=== PATIENT | female | born 1975 | race Caucasian/White ===

== ENCOUNTER 2017-07-04 06:15 | Inpatient (IN) ==
--- NOTE | 2017-07-03 20:23 | Discharge Summary ---
<Fela Lyman - Last Filed: 07/04/17 11:15> Date of Encounter: 07/04/17 - Discharge Diagnosis (1) Arthritis of right knee Priority: Primary Status: Chronic (2) Pain in left knee Priority: Primary Status: Chronic Qualifiers: Chronicity: unspecified Qualified Code(s): M25.562 - Pain in left knee (3) Hypertension Priority: Secondary Status: Chronic Qualifiers: Hypertension type: unspecified Qualified Code(s): I10 - Essential (primary ) hypertension (4) Arthritis of left knee Priority: Primary Status: Chronic (5) Status post total left knee replacement Priority: Primary Status: Acute (6) Status post total right knee replacement Priority: Primary Status: Acute - Discharge Medications Home Medications: Biotin 10 mg PO DAILY 04/11/17 [History] Flaxseed Oil [[place]-3 Flaxseed Oil] 1,000 mg PO DAILY 04/11/17 [History] Glucosamine Sulfate 500 mg PO DAILY 04/11/17 [History] Metoprolol XL (24 HR) Succ [Toprol Xl] 50 mg PO DAILY 04/11/17 [History] Aspirin Enteric Coated [Aspirin EC] 325 mg PO DAILY 21 Days #21 tablet. [Rx] Allergies/Adverse Reactions: 3 Allergy/AdvReac Type Severity Reaction Status Date / Time acetaminophen [From Percocet] Allergy Nausea Verified 07/04/17 06:39 Oxycodone [From Percocet] Allergy Nausea Verified 07/04/17 06:39 Primary care physician: Provider Unassigned - Patient Status Disposition: Home, Self-Care Condition: Good - Discharge Instructions Follow Up With: Unassigned,Provider [Primary Care Provider] - Fela Lyman PAC [Physician Java Web Engineer] - 07/12/17 8:15 am (& also, , July 19, 2017 at 10:00 AM) Lb Duarte MD [Partnered Physician] - 08/01/17 5:30 pm - Hospital Course Hospital course: Ms. Zhang is a 42 year old female - Time Spent with Patient Total time spent providing and/or coordinating discharge services: <Lb Duarte - Last Filed: 07/08/17 07:26> Date of Encounter: 07/08/17 Time of Encounter: 07:23 - Discharge Diagnosis (1) Obesity (BMI 35.0-39.9 without comorbidity) Priority: Secondary Status: Chronic (2) Status post total right knee replacement Priority: Primary Status: Acute (3) Arthritis of right knee Priority: Primary Status: Chronic (4) Pain in left knee Priority: Primary Status: Chronic Qualifiers: Chronicity: unspecified Qualified Code(s): M25.562 - Pain in left knee (5) Hypertension Priority: Secondary Status: Chronic Qualifiers: Hypertension type: unspecified Qualified Code(s): I10 - Essential (primary ) hypertension (6) Acute blood loss anemia Priority: Primary Status: Acute (7) Arthritis of left knee Priority: Primary Status: Chronic (8) Status post total left knee replacement Priority: Primary Status: Acute Primary care physician: Provider Unassigned - Patient Status Overall status at discharge: patient is progressing back to baseline - Hospital Course Hospital course: Ms. Zhang is a 42 year old female Status post bilateral total knee replacements. Patient was acute blood loss anemia and received 5 units of blood. The patient had an uneventful postoperative course. They received antibiotics and physical therapy and were discharged in stable condition. There will follow -up in the office in 2 weeks. - Time Spent with Patient Total time spent providing and/or coordinating discharge services:
[2017-07-04] MEDS ORDERED: CeFAZolin Syr 2,000MG/20 ML 2,000 MG/20 ML SYRINGE IVPB ONE (06:23)
[2017-07-04] MEDS ORDERED: Lidocaine -MPF 1% 2 ML VIAL ID ONE (06:23)
[2017-07-04] MEDS ORDERED: Ringers Solution, Lactated 1,000 ML IVC SCH ×2 (06:30→13:49)
--- NOTE | 2017-07-04 06:41 | History & Physical Report ---
Date of Encounter: 07/04/17 Time of Encounter: 06:41 24 Hour HP Update - Instructions Instructions: If the History and Physical is less than 30 days old and was completed prior to A.M. admission and or procedure and has NOT been updated on calendar day of procedure please complete this update prior to performing procedure. - Update Patient reports changes in Medical Condition: No Changes in examination, assessment, or condition: No Changes in Medication: No Preop tests/diagnostics Reviewed: Yes Surgery Remains Indicated: Yes Consent for Planned Operative Procedure(s) Verified: Yes - Pre-Operative Checklist Preoperative Checklist Indicated: No Prophylactic Antibiotic Ordered: Yes Is VTE Prophylaxis Indicated?: Yes
[2017-07-04] MEDS ORDERED: *HR* FentaNYL (PF) 100 MCG/2 ML VIAL ONE ×2 (06:52→07:32)
[2017-07-04] MEDS ORDERED: *HR* Midazolam HCl 2 MG/2 ML VIAL ONE (06:52)
[2017-07-04] MEDS ORDERED: Lidocaine -MPF 2% 2 ML VIAL ONE (06:52)
[2017-07-04] MEDS ORDERED: *HR* Propofol 200 MG/20 ML VIAL IVP ONE (06:52)
[2017-07-04] MEDS ORDERED: *HR* Phenylephrine 10 MG/ML VIAL ONE (06:57)
[2017-07-04] MEDS ORDERED: Dexamethasone 4 MG/ML VIAL ONE ×2 (06:57→08:33)
[2017-07-04] MEDS ORDERED: Ondansetron 4 MG/2 ML VIAL ONE (06:57)
[2017-07-04] MEDS ORDERED: *HR* HYDROmorphone (PF) 1 MG/ML SYRINGE IVP PRN (07:00)
[2017-07-04] MEDS ORDERED: *HR* Promethazine 25 MG/ML VIAL IVP PRN (07:00)
[2017-07-04] MEDS ORDERED: ROPIVACAINE HCL/PF 0.5% 30 ML VIAL ONE (07:08)
[2017-07-04] MEDS ORDERED: Bupivacaine/Clonidine Syringe 1 EACH SYRINGE ONE (07:09)
[2017-07-04] MEDS ORDERED: Propofol 500 MG/50 ML INFUS..BTL ONE ×4 (07:12→09:32)
[2017-07-04] MEDS ORDERED: Ethanol\\Acetic Acid\\Na Ace\\Ben 1,000 ML IRRIG.SOLN IR ONE (07:12)
[2017-07-04] MEDS ORDERED: Ketamine *HR* 500 MG/10 ML MDV ONE (07:15)
--- NOTE | 2017-07-04 07:25 | Anesthesia Evaluation PreOp ---
Date of Encounter: 07/04/17 Time of Encounter: 07:22 - Past History Planned Operation: Right total knee robotic, robotic left knee arthroscopy Cardiac History: HTN, Arrhythmia (prolonged QT) Pulmonary History: Denies Any Significant HX INTERNAL SALES ENGINEER History: Denies Any Significant HX Other Medical History: Denies Any Significant HX Anesthesia History: Problems (fevers), MH (concern for MH) Alcohol Use: none Drug use: none Medications and Allergies Biotin 10 mg PO DAILY 04/11/17 [History] Flaxseed Oil [[place]-3 Flaxseed Oil] 1,000 mg PO DAILY 04/11/17 [History] Glucosamine Sulfate 500 mg PO DAILY 04/11/17 [History] Metoprolol XL (24 HR) Succ [Toprol Xl] 50 mg PO DAILY 04/11/17 [History] Aspirin Enteric Coated [Aspirin EC] 325 mg PO DAILY 21 Days #21 tablet. [Rx] HYDROcodone/Acet 5/325 mg [[place] 5-325 mg] 1 tab PO Q4-6H PRN 35 Days #7 tab [Rx] 3 Allergy/AdvReac Type Severity Reaction Status Date / Time acetaminophen [From Percocet] Allergy Nausea Verified 07/04/17 06:39 Oxycodone [From Percocet] Allergy Nausea Verified 07/04/17 06:39 - Meds/Allergy Pre-op Review Medications Reviewed: Yes Allergies Reviewed: Yes Beta Blockers on Current Med List: Yes If Beta Blockers taken, Date/Time (Last Dose taken): 07-03-17 metoprolol xl 25 at 23:00 Anesthesia Results - Labs Laboratory Tests 06/14/17 06/14/17 06/14/17 13:35 13:35 13:35 WBC 7.2 Hgb 13.9 Hct 40.9 Plt Count 365 PT 11.0 INR 1.0 APTT 30.6 Sodium 136 Potassium 3.5 Chloride 101 Carbon Dioxide 23 BUN 13 Creatinine 0.75 Est GFR ( Amer) > 60 Est GFR (Non-Af Amer) > 60 BUN/Creatinine Ratio 17 Glucose 116 H Calculated Osmolality 283 Calcium 9.3 - Imaging EKG: report reviewed, image reviewed (SR) Anesthesia Exam Last Vital Signs Temp 98.2 F 07/04/17 06:56 Pulse 75 07/04/17 06:56 Resp 18 07/04/17 06:56 BP 119/71 07/04/17 06:56 Pulse Ox 97 07/04/17 06:56 Weight: 109 kg NPO (# of Hours): > 8 hrs - HEENT Pupil (Motor): Pupils equal, EOMI Mallampati: III Teeth: Normal Oral Opening: Greater than 3 - INTERNAL SALES ENGINEER LOC: Oriented INTERNAL SALES ENGINEER Motor: Normal RUE, Normal LUE, Normal RLE, Normal LLE, Normal Face - Cardiac Rhythm: Regular Murmur: None - Pulmonary Breath Sounds: bilateral Clear Respiratory Effort: Symmetrical Anesthesia Assess/Plan ASA Score: 2 Modified [place] Scale for Level of Consciousness: Cooperative, oriented, and tranquil Anesthetic Plan: General Monitoring Plan: Standard Monitors Recovery Plan: PACU
[2017-07-04] MEDS ORDERED: Acetaminophen IV 1,000 MG/100 ML INFUS..BTL ONE (07:28)
[2017-07-04] MEDS ORDERED: *HR* HYDROmorphone 2 MG/ML SYRINGE ONE ×2 (08:42→09:12)
[2017-07-04] MEDS ORDERED: Albumin Human 5% 25.0 GM/500 ML VIAL ONE (09:51)
--- NOTE | 2017-07-04 10:28 | Orthopedic Operative Note ---
Date of procedure: 07/04/17 Pre-op diagnosis: Bilateral knee arthritis Post-op diagnosis: same Procedure: Procedure: Bilateral robotic-assisted Total knee replacement Estimated blood loss: 1500 cc Hardware: Metal and polyethylene replacement. Ronna Femur: 3 Tibia: 3 PS insert: 9 left 11 right Patella: 36 Exam Under anesthesia: Left knee 5 degrees hyperextension 1 degree varus, right knee 1 degrees hyperextension 5 degree varus as calculated by the robot full flexion and no instability Procedural Notes: Grade 3 arthritic changes in both knees undersurface of patella medial femoral condyle Operative procedure: The patient was brought to the operating room and placed on the operating room table. After general anesthesia was administered the operative knee was examined. Findings were noted in the exam under anesthesia. Pulse lower extremity was reprepped and draped in sterile surgical fashion patient received IV Anaprox twice incision. Surgery began with a diagnostic knee arthroscopy on the left side. A superior medial outflow portal was established outflow Was introduced into the knee without, complication and anterolateral portal was established the arthroscope was introduced into the knee without complication. Diagnostic arthroscopy revealed grade 3 changes undersurface of patella no changes trochlear groove grade 3 changes medial femoral condyle no changes medial tibial plateau no changes lateral compartment based on the patient's extensive failure of conservative management rotation was to do a total knee replacement on the left robotic-assisted The robotic assisted total knee replacements began first with the right followed by the left knees. Surgery was seen for both knees any differences will be highlighted. A standard midline incision was made centered over the patella. The incision was made through the skin and subcutaneous tissue. A medial parapatellar tendon approach was performed. Care was taken to preserve tissue along the medial aspect of the patella. And to protect the patella tendon. The deep MCL was released off the medial tibia. The infra patella fat pad was excised. The patella was everted and cut was made at the level of the insertion of the quadriceps and patella tendon. The patella was sized to a 36 the guide was seated and the lug holes are drilled. Knee was brought into flexion. Patient noted to have grade 3 arthritic changes undersurface of patella medial femoral condyle Steinmann pins were placed in the tibia and the femur for the tibial and femoral arrays respectively. Checkpoints were also placed in the tibia and the femur for calculation purposes. The knee including the femur and the tibial registered. Osteophytes , ACL and PCL were excised at this point. Extension was to and no varus and valgus stresses were assessed, 90 degrees of flexion varus and valgus stresses were assessed and components were adjusted on the computer for the robotic cut positions. Femoral cuts were made first with robotic assistance, these included the anterior cut posterior cuts chamfer cuts. Tibial cut was then performed with robotic assistance as well. Bone fragments were removed, as well as the medial and lateral meniscus. The size 3 femoral guide was seated box cut was made lug holes are drilled. The size 3 tibial tray was seated and prepared with the fin cutter. Trial reduction with the 9 on the left, 11 on the right PS Deidra revealed extension of 0 degrees and full flexion. No varus valgus instability. Trial reduction revealed excellent patella tracking. All trial components were removed all bony surfaces were irrigated. Tibias press-fit followed by the femur PS Deidra size 9 on the left 11 on the right was seated and secured patella. Patient had similar findings for motion and stability. The knee was closed by the PA. The knee was then irrigated out with 2 L of pulse irrigation. The extensor mechanism was closed with #2 FiberWire suture and #2 PDS suture. The subcutaneous tissue was then irrigated and closed deep with #1 PDS suture superficially with 0 PDS suture and skin was closed with zip tie The patient was then placed in a sterile dressing and a postoperative brace extubated and transferred to recovery room in stable condition. Anesthesia: GETA Surgeon: Lb Duarte Was there an family service assistant present: Yes Mobile Application Tester: Fela Lyman Estimated blood loss (cc): 1,500 Condition: stable Disposition: PACU
[2017-07-04] MEDS ORDERED: Naloxone 0.4 MG/ML INJ ONE ×2 (11:06→12:27)
[2017-07-04] MEDS ORDERED: Albuterol 2.5 MG/3 ML NEBULIZER IH ONE (11:25)
[2017-07-04] MEDS ORDERED: Albuterol 2.5 MG/3 ML NEBULIZER ONE (11:26)
[2017-07-04 11:56] LABS: Hematocrit 23.8 % (35.3-44.9); Hemoglobin 7.9 g/dL (11.5-15.4)
[2017-07-04] MEDS ORDERED: Ketorolac 30 MG/ML VIAL IVP ONE (12:32)
[2017-07-04] MEDS ORDERED: traMADol 50 MG TABLET PO PRN (13:49)
[2017-07-04] MEDS ORDERED: Sennosides 8.6 MG TABLET PO PRN (13:49)
[2017-07-04] MEDS ORDERED: MOM Conc 10 ML UD.LIQ PO PRN (13:49)
[2017-07-04] MEDS ORDERED: Naloxone 0.4 MG/ML INJ IVP PRN (13:49)
--- NOTE | 2017-07-04 13:49 | Anesthesia Evaluation Post Op ---
Date of Encounter: 07/04/17 Time of Encounter: 13:25 - Vital Signs Vital Signs: Last Vital Signs Temp 97.8 F 07/04/17 13:40 Pulse 116 07/04/17 13:40 Resp 10 07/04/17 13:40 BP 101/73 07/04/17 13:40 Pulse Ox 94 07/04/17 13:40 - Lungs Lungs: Clear Ascult./Percussion - Airway Airway: Non-obstructed - Cardiovascular Regular Rate - Mental Status Mental Status: Alert & Oriented, Answers Appropriately - Pain Pain Scale: 4 - Nausea Vomiting Nausea Vomiting: Not Present - Hydration Hydration: NPO - Discharge PostOp Status: Transfer Patient to floor
[2017-07-04] MEDS ORDERED: 0.9 % Sodium Chloride 250 ML ONE ×2 (14:10→17:23)
[2017-07-04] MEDS: BIOTIN 10 MG PO SCH (14:32)
[2017-07-04] MEDS: Ondansetron 4 MG/2 ML VIAL IVP PRN (15:12)
[2017-07-04] MEDS ORDERED: Acetaminophen IV 1,000 MG/100 ML INFUS..BTL IVPB PRN (16:00)
[2017-07-04] MEDS: Metoprolol XL (24 HR) Succ 50 MG TAB.ER.24H PO SCH (16:09)
[2017-07-04] MEDS: CeFAZolin Premix DUPLEX 2,000 MG/50 ML BAG IVPB SCH (16:56)
[2017-07-04] MEDS: *HR* HYDROcodone/Acet 5/325 mg TABLET PO PRN ×2 (17:40→21:46)
[2017-07-04] MEDS ORDERED: *HR* Enoxaparin 30 MG/0.3 ML SYRINGE SQ SCH ×2 (18:00)
[2017-07-04] MEDS: *HR* HYDROmorphone (PF) 1 MG/ML SYRINGE IVP PRN (19:21)
[2017-07-04] MEDS ORDERED: Temazepam 15 MG CAPSULE PO PRN (21:00)
[2017-07-05] MEDS: CeFAZolin Premix DUPLEX 2,000 MG/50 ML BAG IVPB SCH (00:34)
[2017-07-05] MEDS: *HR* HYDROmorphone (PF) 1 MG/ML SYRINGE IVP PRN ×3 (00:37→20:50)
[2017-07-05] MEDS: *HR* HYDROcodone/Acet 5/325 mg TABLET PO PRN ×4 (03:23→23:18)
[2017-07-05 04:48] LABS: Hematocrit 24.4 % (35.3-44.9); Hemoglobin 8.2 g/dL (11.5-15.4)
[2017-07-05 04:58] LABS: BUN/Creatinine Ratio 14 (6-26); Blood Urea Nitrogen 10 mg/dL (6-20); Calcium 8.3 mg/dL (8.6-10.3); Carbon Dioxide 24 mEq/L (23-29); Chloride 103 mEq/L (98-107); Glucose 151 mg/dL (70-105); Osmolality,Calculated 280 (280-300); Potassium 4.2 mEq/L (3.5-5.1); Sodium 134 mEq/L (136-145); eGFR For African Americans > 60 (> 60); eGFR For Non-African Americans > 60 (> 60)
[2017-07-05] MEDS ORDERED: Furosemide 40 MG/4 ML VIAL IVP ONE (06:28)
[2017-07-05] MEDS: Ketorolac 30 MG/ML VIAL IVP PRN ×3 (07:04→21:00)
[2017-07-05] MEDS: Ondansetron 4 MG/2 ML VIAL IVP PRN (07:07)
--- NOTE | 2017-07-05 07:47 | Orthopedics Progress Note ---
Date of Encounter: 07/05/17 Time of Encounter: 07:46 - Assessment and Plan (1) Obesity (BMI 35.0-39.9 without comorbidity) Current Visit: Yes Status: Chronic (2) Status post total right knee replacement Current Visit: Yes Status: Acute (3) Arthritis of right knee Current Visit: No Status: Chronic (4) Pain in left knee Current Visit: No Status: Chronic Qualifiers: Chronicity: unspecified Qualified Code(s): M25.562 - Pain in left knee (5) Hypertension Current Visit: No Status: Chronic Qualifiers: Hypertension type: unspecified Qualified Code(s): I10 - Essential (primary ) hypertension (6) Acute blood loss anemia Current Visit: Yes Status: Acute (7) Arthritis of left knee Current Visit: Yes Status: Chronic (8) Status post total left knee replacement Current Visit: Yes Status: Acute Subjective Interval history: Patient was seen this morning doing well without complaints. Afebrile vital signs stable. Operative extremity: Neurovascularly intact Dressing clean dry and intact Calves nontender Assessment and plan: Continue with postoperative care Hematocrit 24 transfused 2 more units hold Lovenox Objective Vital signs: Vital Signs Temp Pulse Resp BP Pulse Ox 07/05/17 06:54 98.1 F 114 16 103/62 96 07/05/17 05:39 98.4 F 111 16 111/64 96 07/05/17 00:17 97.9 F 106 16 128/76 97 07/04/17 20:34 99.8 F H 98 18 139/84 98 07/04/17 17:51 98.6 F 97 14 107/67 100 07/04/17 17:36 99.0 F 95 15 115/82 100 07/04/17 16:52 98.0 F 101 16 109/69 100 07/04/17 15:56 97.5 F L 95 16 105/68 100 07/04/17 14:40 97.5 F L 111 18 97/68 98 07/04/17 14:38 97.5 F L 110 17 97/68 99 07/04/17 14:25 98.0 F 107 18 101/71 99 07/04/17 14:11 12 97 07/04/17 14:05 98.0 F 110 17 101/73 100 07/04/17 13:40 97.8 F 116 10 101/73 94 07/04/17 13:23 97.6 F 115 12 105/74 99 07/04/17 13:13 97.6 F 111 12 101/78 98 07/04/17 13:03 105 10 104/63 96 07/04/17 12:53 104 12 96/70 95 07/04/17 12:43 98.2 F 96 10 99/80 99 07/04/17 12:33 105 12 115/70 96 07/04/17 12:23 112 15 99/70 100 07/04/17 12:13 97.4 F L 109 15 105/71 99 07/04/17 12:03 107 10 115/71 96 07/04/17 11:53 108 10 128/74 99 07/04/17 11:43 97.5 F L 104 12 119/73 96 07/04/17 11:33 97 12 102/67 98 07/04/17 11:23 105 12 103/80 98 07/04/17 11:13 97.8 F 107 12 103/87 98 Intake and Output 07/04/17 07/04/17 07/05/17 15:59 23:59 07:59 Intake Total 20 / 20 700 / 700 Output Total 2600 / 2600 1100 / 1100 Balance -2580 / -2580 700 / 700 -1100 / -1100 Intake: IV Fluids 20 / 20 150 / 150 Ofirmev 1,000 mg/100 ml 1,000 100 / 100 mg In 100 ml @ 400 mls/hr IVPB Q6HR PRN Rx#:[id number] Ancef Premix DUPLEX 2,000 mg In 50 / 50 50 ml @ 100 mls/hr IVPB Q8HR YMOAIRA Rx#:[id number] Ancef Syringe 2,000 MG/20 ML 2, 20 / 20 000 mg In 20 ml @ 200 mls/hr IVPB PREOP ONE Rx#:[id number] Oral 0 / 0 Blood Product 0 / 0 550 / 550 Rbcs Leuko Poor As-1 Unit 0 / 0 300 / 300 [id number] Rbcs Leuko Poor As-1 Unit 250 / 250 [id number] Output: Urine 1100 / 1100 Estimated Blood Loss 1500 / 1500 Catheter 1100 / 1100 - Labs CBC & BMP: 07/05/17 04:06 07/05/17 04:06 Labs: Abnormal lab results Hgb 8.2 g/dL (11.5-15.4) L 07/05/17 04:06 Hct 24.4 % (35.3-44.9) L 07/05/17 04:06 Sodium 134 mEq/L (136-145) L 07/05/17 04:06 Glucose 151 mg/dL (70-105) H 07/05/17 04:06 Calcium 8.3 mg/dL (8.6-10.3) L 07/05/17 04:06 - VTE Documentation of Mechanical Device: Venous foot pump, device Consult Discharge Plan - Plan Referrals: Unassigned,Provider [Primary Care Provider] -
[2017-07-05] MEDS: BIOTIN 10 MG PO SCH (08:03)
[2017-07-05] MEDS: Metoprolol XL (24 HR) Succ 50 MG TAB.ER.24H PO SCH (08:03)
[2017-07-05] MEDS ORDERED: 0.9 % Sodium Chloride 250 ML ONE ×2 (09:16→14:24)
[2017-07-06] MEDS: *HR* HYDROcodone/Acet 5/325 mg TABLET PO PRN ×5 (04:11→21:22)
[2017-07-06 06:05] LABS: Hematocrit 25.3 % (35.3-44.9); Hemoglobin 8.6 g/dL (11.5-15.4)
[2017-07-06 06:22] LABS: BUN/Creatinine Ratio 15 (6-26); Blood Urea Nitrogen 10 mg/dL (6-20); Calcium 8.3 mg/dL (8.6-10.3); Carbon Dioxide 33 mEq/L (23-29); Chloride 105 mEq/L (98-107); Glucose 119 mg/dL (70-105); Osmolality,Calculated 288 (280-300); Potassium 3.9 mEq/L (3.5-5.1); Sodium 139 mEq/L (136-145); eGFR For African Americans > 60 (> 60); eGFR For Non-African Americans > 60 (> 60)
--- NOTE | 2017-07-06 06:32 | Orthopedics Progress Note ---
Date of Encounter: 07/06/17 Time of Encounter: 06:32 - Assessment and Plan (1) Obesity (BMI 35.0-39.9 without comorbidity) Current Visit: Yes Status: Chronic (2) Status post total right knee replacement Current Visit: Yes Status: Acute (3) Arthritis of right knee Current Visit: No Status: Chronic (4) Pain in left knee Current Visit: No Status: Chronic Qualifiers: Chronicity: unspecified Qualified Code(s): M25.562 - Pain in left knee (5) Hypertension Current Visit: No Status: Chronic Qualifiers: Hypertension type: unspecified Qualified Code(s): I10 - Essential (primary ) hypertension (6) Acute blood loss anemia Current Visit: Yes Status: Acute (7) Arthritis of left knee Current Visit: Yes Status: Chronic (8) Status post total left knee replacement Current Visit: Yes Status: Acute Subjective Interval history: Patient was seen this morning doing well without complaints. Afebrile vital signs stable. Operative extremity: Neurovascularly intact Dressing clean dry and intact Calves nontender Assessment and plan: Continue with postoperative care Hematocrit 25 vital signs stable Objective Vital signs: Vital Signs Temp Pulse Resp BP Pulse Ox 07/06/17 04:13 99.1 F 98 16 99/64 98 07/05/17 23:49 99.2 F 90 18 112/68 99 07/05/17 19:40 98.5 F 91 16 105/60 94 07/05/17 17:43 98.3 F 97 15 106/70 98 07/05/17 14:57 98.5 F 95 14 101/61 95 07/05/17 14:42 98.7 F 92 15 98/62 94 07/05/17 14:23 97 14 120/77 98 07/05/17 12:33 98.3 F 97 14 120/77 98 07/05/17 11:22 98.3 F 91 15 105/69 97 07/05/17 09:59 98.0 F 97 15 112/68 97 07/05/17 09:44 98.2 F 100 15 114/72 96 07/05/17 06:54 98.1 F 114 16 103/62 96 Intake and Output 07/05/17 07/05/17 07/06/17 15:59 23:59 07:59 Intake Total 420 / 420 500 / 500 Output Total 200 / 200 875 / 875 350 / 350 Balance 220 / 220 -375 / -375 -350 / -350 Intake: Oral 120 / 120 200 / 200 Blood Product 300 / 300 300 / 300 Rbcs Leuko Poor As-1 Unit 0 / 0 300 / 300 [id number] Rbcs Leuko Poor As-1 Unit 300 / 300 [id number] Output: Urine 200 / 200 350 / 350 350 / 350 Straight Cath 525 / 525 Other: Meal Breakfast Dinner Percent of Meal Consumed 90% 100% # Voids 1 1 Weight 108.68 kg Patient Weight 07/06/17 23:59 Weight 108.68 kg - Labs CBC & BMP: 07/06/17 05:46 07/06/17 05:46 Labs: Abnormal lab results Hgb 8.6 g/dL (11.5-15.4) L 07/06/17 05:46 Hct 25.3 % (35.3-44.9) L 07/06/17 05:46 Carbon Dioxide 33 mEq/L (23-29) H 07/06/17 05:46 Glucose 119 mg/dL (70-105) H 07/06/17 05:46 Calcium 8.3 mg/dL (8.6-10.3) L 07/06/17 05:46 - VTE Documentation of Mechanical Device: Venous foot pump, device Consult Discharge Plan - Plan Referrals: Unassigned,Provider [Primary Care Provider] - Fela Lyman PAC [Physician Java Web Architect] - 07/12/17 8:15 am (& also, July at 10:00 AM) Lb Duarte MD [Partnered Physician] - 08/01/17 5:30 pm
[2017-07-06] MEDS: BIOTIN 10 MG PO SCH (07:49)
[2017-07-06] MEDS: Metoprolol XL (24 HR) Succ 50 MG TAB.ER.24H PO SCH (07:50)
[2017-07-06] MEDS: Ketorolac 30 MG/ML VIAL IVP PRN ×2 (09:36→16:02)
--- NOTE | 2017-07-06 16:50 | Event Note ---
Date of Encounter: 07/06/17 Time of Encounter: 12:45 PCR- POD#2 Bilateral TKR 07/04/17 PCR - Patient seen at bedside. Pain control: Adequate Participating in PT. All questions and concerns addressed. Educated on use of incentive spirometer, ambulation, and hydration. Patient educated on post-operative restrictions and care. Addressed: see above. D/C plan: ECF
--- NOTE | 2017-07-06 16:52 | Physician Discharge Referral ---
ExtendedCare Referral Info Transfer To: [facility] Provider in Charge: Dr. Duarte - Diagnosis (1) Arthritis of right knee Priority: Secondary Status: Chronic (2) Pain in left knee Priority: Secondary Status: Chronic (3) Hypertension Priority: Secondary Status: Chronic (4) Obesity (BMI 35.0-39.9 without comorbidity) Priority: Secondary Status: Chronic (5) Status post total right knee replacement Priority: Primary Status: Acute (6) Arthritis of left knee Priority: Secondary Status: Chronic (7) Status post total left knee replacement Priority: Primary Status: Acute (8) Acute blood loss anemia Priority: Secondary Status: Acute Expected Duration of Placement: <30 days Prognosis: Good Aware of Diagnosis: Patient Aware of Prognosis: Patient - Transfer Medications Home Medications: Biotin 10 mg PO DAILY 04/11/17 [History] Flaxseed Oil [[employer]-3 Flaxseed Oil] 1,000 mg PO DAILY 04/11/17 [History] Glucosamine Sulfate 500 mg PO DAILY 04/11/17 [History] Metoprolol XL (24 HR) Succ [Toprol Xl] 50 mg PO DAILY 04/11/17 [History] Aspirin Enteric Coated [Aspirin EC] 325 mg PO DAILY 21 Days #21 tablet. [Rx] Allergies/Adverse Reactions: 3 Allergy/AdvReac Type Severity Reaction Status Date / Time acetaminophen [From Percocet] Allergy Nausea Verified 07/04/17 06:39 Oxycodone [From Percocet] Allergy Nausea Verified 07/04/17 06:39 - Respiratory Orders Smoking Cessation: Smoking cessation has been advised. For more information, call the [place] Tobacco Quit Line at 5-330-ZFHE-NOW. - Ancillary Orders May use pressure relief devices daily prn, May go on MAC w/family/respon democrat w /meds at nurse discretion PRN, May consult with Dentist, Senior Planning Analyst, Sheet Mill Supervisor PRN - Mobility Orders Chair, Ambulate - Rehabiliation Orders Rehab Potential: Good Rehab Orders: Evaluation for Physical Therapy, Evaluation for Occupational Therapy Other: Total Knee replacement Precautions x 6 weeks Apply cold therapy wrap 3-6x/day for 20 minutes at a time. Encourage ambulation throughout the day and incentive spirometer 10x/hour. Elevate affected extremity above heart as tolerated. Brace: Wear knee immobilizer at night x 2 weeks. - Treatments Skin tear care topically daily PRN per policy List/Other: Opsite placed. Keep dressing intact until first follow up appointment. If > 50% saturated, notify office, remove dressing and place appropriate dressing back in place. Dressing is water resistant, not water-proof. OK to shower, but do not get dressing wet. - Diet Orders Regular CERTIFICATION: I certify that the transfer of the above named patient to an Extended Care Facility is necessary for the continuing treatment of the diagnosis listed. The above information is true and accurate reflection of patient's current condition. Confidential - Redisclosure prohibited without a patient's written consent.
[2017-07-07] MEDS: *HR* HYDROcodone/Acet 5/325 mg TABLET PO PRN ×3 (04:22→20:45)
[2017-07-07] MEDS: *HR* HYDROmorphone (PF) 1 MG/ML SYRINGE IVP PRN ×2 (05:11→07:43)
[2017-07-07 07:06] LABS: Hematocrit 23.8 % (35.3-44.9)
[2017-07-07] MEDS: Metoprolol XL (24 HR) Succ 50 MG TAB.ER.24H PO SCH (07:45)
[2017-07-07] MEDS: BIOTIN 10 MG PO SCH (07:45)
--- NOTE | 2017-07-07 07:59 | Orthopedics Progress Note ---
Date of Encounter: 07/07/17 Time of Encounter: 07:59 - Assessment and Plan (1) Obesity (BMI 35.0-39.9 without comorbidity) Current Visit: Yes Status: Chronic (2) Status post total right knee replacement Current Visit: Yes Status: Acute (3) Arthritis of right knee Current Visit: No Status: Chronic (4) Pain in left knee Current Visit: No Status: Chronic Qualifiers: Chronicity: unspecified Qualified Code(s): M25.562 - Pain in left knee (5) Hypertension Current Visit: No Status: Chronic Qualifiers: Hypertension type: unspecified Qualified Code(s): I10 - Essential (primary ) hypertension (6) Acute blood loss anemia Current Visit: Yes Status: Acute (7) Arthritis of left knee Current Visit: Yes Status: Chronic (8) Status post total left knee replacement Current Visit: Yes Status: Acute Subjective Interval history: Patient was seen this morning doing well without complaints. Afebrile vital signs stable. Operative extremity: Neurovascularly intact Dressing clean dry and intact Calves nontender Assessment and plan: Continue with postoperative care Hematocrit 23 vital signs stable Objective Vital signs: Vital Signs Temp Pulse Resp BP Pulse Ox 07/07/17 07:01 98.4 F 107 16 134/87 96 07/07/17 05:14 98.7 F 104 16 138/85 95 07/07/17 00:42 98.5 F 107 16 90/55 93 07/06/17 18:52 98.1 F 94 16 97/64 94 07/06/17 16:46 98.0 F 87 16 120/75 98 07/06/17 11:04 98.7 F 97 14 111/67 94 Intake and Output 07/06/17 07/06/17 07/07/17 15:59 23:59 07:59 Intake Total 240 / 240 480 / 480 500 / 500 Output Total 200 / 200 Balance 240 / 240 280 / 280 500 / 500 Intake: Oral 240 / 240 480 / 480 500 / 500 Output: Urine 200 / 200 Other: Meal Breakfast Dinner Percent of Meal Consumed 100% 85% # Voids 1 3 - Labs CBC & BMP: 07/07/17 06:53 07/06/17 05:46 Labs: Abnormal lab results Hgb 8.0 g/dL (11.5-15.4) L 07/07/17 06:53 Hct 23.8 % (35.3-44.9) L 07/07/17 06:53 Carbon Dioxide 33 mEq/L (23-29) H 07/06/17 05:46 Glucose 119 mg/dL (70-105) H 07/06/17 05:46 Calcium 8.3 mg/dL (8.6-10.3) L 07/06/17 05:46 - VTE Documentation of Mechanical Device: Venous foot pump, device Consult Discharge Plan - Plan Referrals: Unassigned,Provider [Primary Care Provider] - Fela Lyman, PAC [Physician Research Development Director] - 07/12/17 8:15 am (& also, , July 19, 2017 at 10:00 AM) Lb Duarte MD [Partnered Physician] - 08/01/17 5:30 pm
[2017-07-07] MEDS: Ondansetron 4 MG/2 ML VIAL IVP PRN (10:10)
[2017-07-07] MEDS: Ketorolac 30 MG/ML VIAL IVP PRN (12:24)
[2017-07-07] MEDS ORDERED: Acetaminophen IV 1,000 MG/100 ML INFUS..BTL IVPB PRN (13:13)
[2017-07-07] MEDS ORDERED: 0.9 % Sodium Chloride 250 ML IVC SCH (13:30)
[2017-07-07] MEDS ORDERED: Scopolamine Patch 1.5 MG PATCH.TD72 TD ONE (13:46)
[2017-07-08] MEDS: *HR* HYDROmorphone (PF) 1 MG/ML SYRINGE IVP PRN ×2 (00:32→06:40)
[2017-07-08] MEDS: *HR* HYDROcodone/Acet 5/325 mg TABLET PO PRN ×3 (01:45→10:19)
[2017-07-08 05:18] LABS: Hematocrit 26.5 % (35.3-44.9); Hemoglobin 8.7 g/dL (11.5-15.4)
[2017-07-08 06:27] VITALS: BP 116/76
--- NOTE | 2017-07-08 07:26 | Orthopedics Progress Note ---
Date of Encounter: 07/08/17 Time of Encounter: 07:26 - Assessment and Plan (1) Obesity (BMI 35.0-39.9 without comorbidity) Current Visit: Yes Status: Chronic (2) Status post total right knee replacement Current Visit: Yes Status: Acute (3) Arthritis of right knee Current Visit: No Status: Chronic (4) Pain in left knee Current Visit: No Status: Chronic Qualifiers: Chronicity: unspecified Qualified Code(s): M25.562 - Pain in left knee (5) Hypertension Current Visit: No Status: Chronic Qualifiers: Hypertension type: unspecified Qualified Code(s): I10 - Essential (primary ) hypertension (6) Acute blood loss anemia Current Visit: Yes Status: Acute (7) Arthritis of left knee Current Visit: Yes Status: Chronic (8) Status post total left knee replacement Current Visit: Yes Status: Acute Subjective Interval history: Patient was seen this morning doing well without complaints. Afebrile vital signs stable. Operative extremity: Neurovascularly intact Dressing clean dry and intact Calves nontender Assessment and plan: Continue with postoperative care Hematocrit 26 discharged today Objective Vital signs: Vital Signs Temp Pulse Resp BP Pulse Ox 07/08/17 06:26 97.7 F 74 16 116/76 96 07/08/17 00:00 98.8 F 88 14 116/77 97 07/07/17 20:00 96 07/07/17 19:22 98.9 F 83 16 119/77 96 07/07/17 17:10 98.8 F 82 14 96/64 99 07/07/17 16:55 98.1 F 84 16 107/71 93 07/07/17 16:14 97.7 F 78 16 106/72 99 07/07/17 12:34 98.0 F 98 16 98/63 94 Intake and Output 07/07/17 07/07/17 07/08/17 15:59 23:59 07:59 Intake Total 670 / 670 200 / 200 Balance 670 / 670 200 / 200 Intake: IV Fluids 100 / 100 Ofirmev 1,000 mg/100 ml 1,000 100 / 100 mg In 100 ml @ 400 mls/hr IVPB Q6H PRN Rx#:[id number] Oral 220 / 220 200 / 200 Blood Product 350 / 350 Rbcs Leuko Poor As-1 Unit 350 / 350 [id number] Other: Meal Lunch Percent of Meal Consumed 100% # Voids 1 1 2 - Labs CBC & BMP: 07/08/17 04:57 07/06/17 05:46 Labs: Abnormal lab results Hgb 8.7 g/dL (11.5-15.4) L 07/08/17 04:57 Hct 26.5 % (35.3-44.9) L 07/08/17 04:57 Carbon Dioxide 33 mEq/L (23-29) H 07/06/17 05:46 Glucose 119 mg/dL (70-105) H 07/06/17 05:46 Calcium 8.3 mg/dL (8.6-10.3) L 07/06/17 05:46 - VTE Documentation of Mechanical Device: Venous foot pump, device Consult Discharge Plan - Plan Referrals: Unassigned,Provider [Primary Care Provider] - Fela Lyman PAC [Physician Scientist Propagator] - 07/12/17 8:15 am (& also, July at 10:00 AM) Lb Duarte MD [Partnered Physician] - 08/01/17 5:30 pm
[2017-07-08] MEDS: Metoprolol XL (24 HR) Succ 50 MG TAB.ER.24H PO SCH (10:19)
== END 2017-07-08 14:43 | disposition home or self-care (01) | DRG 462 ==
LOC: SAMDAY 06:15 → 3NENU 13:39
PROVIDERS: ADMIT Orthopaedic Surgery; ATTEND Orthopaedic Surgery